=== PATIENT | male | born 1945 | race Caucasian/White ===

== ENCOUNTER 2019-10-26 14:13 | Emergency (ER) | payer OTHER ==
[~2019-10-26] VITALS: Ht 180.3 cm; Wt 63.5 kg
[2019-10-26 14:41] LABS: Basophils # (auto) 0.1 10 ^3/uL (0-0.2); Eosinophils # (auto) 0.1 10 ^3/uL (0-0.8); Hemoglobin 7.8 g/dL (13.5-17.5); Lymphocytes # (auto) 1.2 10 ^3/uL (0.4-5.4); Monocytes # (auto) 0.5 10 ^3/uL (0-1.3); Neutrophils # (auto) 3.8 10 ^3/uL (1.6-8.6); Nucleated Red Blood Cells % 0.1 %; White Blood Cell 5.7 10^3/uL (4.4-10.8)
[2019-10-26 14:43] LABS: Basophils % (auto) 1.9 % (0.0-2.0); Eosinophils % (auto) 1.3 % (0.0-7.0); Hematocrit 22.8 % (41.0-53.0); Lymphocytes % (auto) 20.5 % (10.0-50.0); Mean Corpuscular Hgb Conc. 34.2 g/dL (32.0-36.0); Mean Corpuscular Volume 122.7 fL (80.0-100.0); Neutrophils % (auto) 67.3 % (37.0-80.0); Platelet Count (auto) 216 10^3/uL (140-450); Red Blood Cells 1.86 10^6/uL (4.5-5.90); Red Cell Distribution Width 14.3 % (11.8-14.3)
[2019-10-26 14:59] LABS: Alanine Aminotransferase 17 U/L (16-61); Albumin 3.7 g/dL (3.4-5.0); Anion Gap 4 (5-15); Aspartate Aminotransferase 12 U/L (15-37); BUN/Creatinine Ratio 16.4; Blood Urea Nitrogen 28 mg/dL (7-18); Calcium 8.3 mg/dL (8.5-10.1); Carbon Dioxide 25 mmol/L (21-32); Chloride 109 mmol/L (98-107); GFR African American 51 mL/min; GFR Non-African American 42 mL/min; Glucose 124 mg/dL (74-106); Magnesium 2.3 mg/dL (1.6-2.6); Potassium 4.6 mmol/L (3.5-5.1); Sodium 138 mmol/L (136-145)
[2019-10-26 15:04] LABS: Alkaline Phosphatase 47 U/L (45-117); Bilirubin, Total 0.4 mg/dL (0.2-1.0); Total Protein 7.2 g/dL (6.4-8.2)
[2019-10-26 18:06] VITALS: BP 130/70
[2019-10-26 18:26] VITALS: BP 120/72
[2019-10-26 18:43] LABS: Urine Bacteria NONE SEEN /hpf (None Seen); Urine Blood Negative /uL (Negative); Urine Mucus FEW (None Seen); Urine Specific Gravity 1.007 (1.001-1.035); Urine WBC <1 /hpf (0 - 3)
[2019-10-26 19:29] VITALS: BP 132/91
[2019-10-26 20:12] VITALS: BP 130/80
[2019-12-31] MEDS ORDERED: FERR-7 PO (16:40)
[2020-02-23] MEDS ORDERED: ALBUAER3 IN (03:59)
== END 2019-10-26 20:32 | disposition home or self-care (01) ==
LOC: ER 14:13
DX: D64.9 Anemia, unspecified (principal); C79.82 Secondary malignant neoplasm of genital organs
CPT/HCPCS: 36415; 36430; 71045; 80053; 81001; 83735; 84484; 85025; 86850; 86900; 86901; 86920; 93005; 99285; P9016

== ENCOUNTER 2019-11-29 10:20 | Inpatient (IN) | payer OTHER ==
[~2019-11-29] VITALS: Ht 180.3 cm; Wt 60.8 kg
[2019-11-29 10:53] LABS: Basophils # (auto) 0.1 10 ^3/uL (0-0.2); Eosinophils # (auto) 0.1 10 ^3/uL (0-0.8); Hemoglobin 7.1 g/dL (13.5-17.5); Monocytes # (auto) 0.3 10 ^3/uL (0-1.3); White Blood Cell 3.2 10^3/uL (4.4-10.8)
[2019-11-29 10:54] LABS: Basophils % (auto) 3.6 % (0.0-2.0); Eosinophils % (auto) 3.3 % (0.0-7.0); Hematocrit 21.3 % (41.0-53.0); Lymphocytes # (auto) 1.3 10 ^3/uL (0.4-5.4); Lymphocytes % (auto) 39.5 % (10.0-50.0); Mean Corpuscular Hemoglobin 41.4 pg (28.0-32.0); Mean Corpuscular Hgb Conc. 33.3 g/dL (32.0-36.0); Mean Corpuscular Volume 124.6 fL (80.0-100.0); Monocytes % (auto) 9.5 % (0.0-12.0); Neutrophils # (auto) 1.4 10 ^3/uL (1.6-8.6); Neutrophils % (auto) 44.1 % (37.0-80.0); Nucleated Red Blood Cells % 0.2 %; Platelet Count (auto) 234 10^3/uL (140-450); Red Blood Cells 1.71 10^6/uL (4.5-5.90); Red Cell Distribution Width 15.1 % (11.8-14.3)
[2019-11-29 11:06] LABS: INR 1.03 (0.9-1.15); Partial Thromboplastin Time 27.3 sec (23.64-32.05)
[2019-11-29 11:16] LABS: Albumin 3.7 g/dL (3.4-5.0); Calcium 8.1 mg/dL (8.5-10.1); Potassium 4.1 mmol/L (3.5-5.1)
[2019-11-29 11:19] LABS: Bilirubin, Total 0.3 mg/dL (0.2-1.0); Total Protein 7.2 g/dL (6.4-8.2)
[2019-11-29 13:21] VITALS: BP 115/61
[2019-11-29 13:45] VITALS: BP 112/62
[2019-11-29] MEDS ORDERED: NITROGLYCERIN 0.4 MG SL TAB SL PRN (14:15)
[2019-11-29] MEDS ORDERED: MORPHINE SULF INJ 2 MG/ML SYRINGE 1ML IV PRN (14:15)
[2019-11-29 16:15] VITALS: BP 113/53
[2019-11-29 16:16] VITALS: BP 113/53
[2019-11-29 16:49] LABS: Hemoglobin 7.3 g/dL (13.5-17.5)
[2019-11-29 16:51] LABS: Hematocrit 21.3 % (41.0-53.0)
[2019-11-29] MEDS ORDERED: IPRATROPIUM BROM 0.5 MG/2.5ML INH SOL NEB SCH (18:00)
== END 2019-11-29 18:00 | disposition home health service (06) | DRG 812 ==
LOC: ER 10:20 → TELE 10:21
PROVIDERS: ADMIT Internal Medicine; ATTEND Internal Medicine
PROC: 30233N1 Transfusion of Nonautologous Red Blood Cells into Peripheral Vein, Percutaneous Approach (ICD-10-PCS; principal; 2019-11-29)
DX: D64.9 Anemia, unspecified (principal); I10 Essential (primary) hypertension; J44.9 Chronic obstructive pulmonary disease, unspecified; Z85.46 Personal history of malignant neoplasm of prostate; Z92.3 Personal history of irradiation
CPT/HCPCS: 36415; 71046; 80053; 85014; 85018; 85025; 85610; 85730; 86850; 86900; 86901; 86920; 93005; 99291; G0378

== ENCOUNTER 2019-12-29 15:05 | Inpatient (IN) | payer OTHER ==
[~2019-12-29] VITALS: Ht 180.3 cm; Wt 63.0 kg
[2019-12-29 16:42] LABS: Basophils # (auto) 0.1 10 ^3/uL (0-0.2); Eosinophils # (auto) 0.1 10 ^3/uL (0-0.8); Lymphocytes # (auto) 1.1 10 ^3/uL (0.4-5.4); Monocytes # (auto) 0.4 10 ^3/uL (0-1.3); Nucleated Red Blood Cells % 0.1 %
[2019-12-29 16:51] LABS: Neutrophils % (auto) 56.4 % (37.0-80.0); White Blood Cell 3.9 10^3/uL (4.4-10.8)
[2019-12-29 16:52] LABS: Basophils % (auto) 3.5 % (0.0-2.0); Lymphocytes % (auto) 27.7 % (10.0-50.0); Monocytes % (auto) 9.4 % (0.0-12.0); Neutrophils # (auto) 2.2 10 ^3/uL (1.6-8.6); Red Blood Cells 1.62 10^6/uL (4.5-5.90)
[2019-12-29 16:53] LABS: Hematocrit 20.6 % (41.0-53.0); Mean Corpuscular Hemoglobin 42.5 pg (28.0-32.0); Mean Corpuscular Hgb Conc. 33.5 g/dL (32.0-36.0); Mean Corpuscular Volume 26.8 fL (80.0-100.0); Platelet Count (auto) 206 10^3/uL (140-450); Red Cell Distribution Width 16.3 % (11.8-14.3)
[2019-12-29 16:57] LABS: Hemoglobin 6.9 g/dL (13.5-17.5)
[2019-12-29 16:59] LABS: Albumin 3.7 g/dL (3.4-5.0); Calcium 8.2 mg/dL (8.5-10.1)
[2019-12-29 17:02] LABS: BUN/Creatinine Ratio 20.4; Bilirubin, Total 0.3 mg/dL (0.2-1.0)
[2019-12-29] MEDS ORDERED: ACETAMINOPHEN 325 MG TAB PO PRN (19:45)
[2019-12-29] MEDS ORDERED: MORPHINE SULF INJ 2 MG/ML SYRINGE 1ML IV PRN ×2 (19:45)
[2019-12-29] MEDS ORDERED: HYDROcodone-ACET 5/325MG TAB PO PRN (19:45)
[2019-12-29] MEDS ORDERED: HYDROmorphone HCL 2 MG/ML VL IV PRN (19:45)
[2019-12-29] MEDS ORDERED: NITROGLYCERIN 0.4 MG SL TAB SL PRN (19:45)
[2019-12-29] MEDS ORDERED: TEMAZEPAM 15 MG CAP PO PRN (19:45)
[2019-12-29 20:09] LABS: % Iron Saturation 61.6 % (20-55)
[2019-12-29 20:33] LABS: Ferritin 418.5 ng/mL (10-322); Folate (Folic Acid) 19.93 ng/mL (5.38-24)
[2019-12-29 21:30] VITALS: BP 130/69
[2019-12-29 21:45] VITALS: BP 117/72
[2019-12-29 22:30] VITALS: BP 137/68
[2019-12-29] MEDS: SODIUM CHLOR 0.9% PF (SALINE LOCK) 10ML VIAL/SYR IV SCH (22:30)
[2019-12-29] MEDS: PANTOPRAZOLE 40 MG/10 ML VIAL INJ IV SCH (22:30)
[2019-12-29 22:40] LABS: Urine Bacteria NONE SEEN /hpf (None Seen); Urine Blood Negative /uL (Negative); Urine Mucus FEW (None Seen); Urine WBC <1 /hpf (0 - 3)
[2019-12-29 23:10] VITALS: BP 129/72
[2019-12-30] VITALS (10 sets, daily range): BP systolic 99–152; BP diastolic 39–89
--- NOTE | 2019-12-30 00:05 | NUR ---
MS admit from [facility] admitted to tele/MS after SBAR received. Patient oriented to JAVI guerrero RN, unit, room 217, bed B, and unit policies regarding patient care and visiting hours. Patient weighed by bedscale and encouraged to call if they need something. All questions and concerns addressed, patient verbalized understanding.
--- NOTE | 2019-12-30 01:00 | NUR ---
Patient arrived with a dry cough, no fever, Patient was asked if he has taken the COVID 19 test, patient says I only got to he store! to get food. Will endorse to AM RN to ask for a n order to test for COVID
[2019-12-30] MEDS: SODIUM CHLOR 0.9% PF (SALINE LOCK) 10ML VIAL/SYR IV SCH ×2 (04:30→14:00)
--- NOTE | 2019-12-30 08:00 | NUR ---
Morning note Patient resting in bed with even and unlabored respirations, no distress noted. Instructed patient on POC, fall precautions and to call for assistance as needed. Patient verbalized understanding. Fall precautions in place with call light within reach.
--- NOTE | 2019-12-30 08:15 | NUR ---
Patient's daughter called for an update Password obtained from patient. Keesha, patient's daughter, confirmed password. Update provided.
--- NOTE | 2019-12-30 08:19 | NUR ---
was at bedside - Dr. Acosta - lane for discharge. Patient is okay for discharge once CBC results are resulted.
--- NOTE | 2019-12-30 08:27 | NUR ---
MD at bedside - Dr. Salas - notified MD that patient is refusing EGD MD verbalized understanding. Order received and read back to verify.
--- NOTE | 2019-12-30 08:28 | NUR ---
RE: COVID test - notified MD Notified Dr. Acosta. MD verbalized understanding. Patient not to be tested per MD.
[2019-12-30 08:46] LABS: Basophils # (auto) 0.1 10 ^3/uL (0-0.2); Eosinophils # (auto) 0.1 10 ^3/uL (0-0.8); Hemoglobin 7.2 g/dL (13.5-17.5); Monocytes # (auto) 0.3 10 ^3/uL (0-1.3); Nucleated Red Blood Cells % 0.2 %; White Blood Cell 3.3 10^3/uL (4.4-10.8)
[2019-12-30 08:48] LABS: Basophils % (auto) 2.3 % (0.0-2.0); Eosinophils % (auto) 3.1 % (0.0-7.0); Hematocrit 20.7 % (41.0-53.0); Lymphocytes # (auto) 0.6 10 ^3/uL (0.4-5.4); Lymphocytes % (auto) 19.1 % (10.0-50.0); Mean Corpuscular Hemoglobin 40.9 pg (28.0-32.0); Mean Corpuscular Hgb Conc. 34.9 g/dL (32.0-36.0); Monocytes % (auto) 10.1 % (0.0-12.0); Neutrophils # (auto) 2.1 10 ^3/uL (1.6-8.6); Neutrophils % (auto) 65.4 % (37.0-80.0); Platelet Count (auto) 163 10^3/uL (140-450); Red Blood Cells 1.77 10^6/uL (4.5-5.90)
[2019-12-30 08:56] LABS: Red Cell Distribution Width 23.5 % (11.8-14.3)
[2019-12-30 08:57] LABS: Calcium 8.2 mg/dL (8.5-10.1)
[2019-12-30 09:04] LABS: INR 1.05 (0.9-1.15); Partial Thromboplastin Time 21.4 sec (23.64-32.05)
--- NOTE | 2019-12-30 09:49 | NUR ---
Called Dr. Acosta to notify of CBC results per MD request Results read to Dr. Karla Sepulveda's office staff member.
[2019-12-30] MEDS: PANTOPRAZOLE 40 MG/10 ML VIAL INJ IV SCH (09:53)
--- NOTE | 2019-12-30 09:59 | NUR ---
MRSA swab collected & sent to lab per MD order.
[2019-12-30] MEDS ORDERED: CYANOCOBALAMIN (B-12) 1000 MCG/1 ML VIAL SUBCUT SCH (10:00)
--- NOTE | 2019-12-30 14:58 | NUR ---
MD was at bedside - Dr. Quinones / called patient's daughter POC discussed with the patient and this RN. Called Keesha, patient's daughter, to update on POC. Keesha verbalized understanding and will transport patient home this evening.
--- NOTE | 2019-12-30 15:43 | NUR ---
Blood transfusion started per MD order Order for blood transfusion received. Consent signed in patient's hard chart. Patient verbalized understanding to the order of one unit of PRBCs. Patient educated on s/s of blood transfusion and to notify staff immediately if experiencing any symptoms or any change from baseline. Patient verbalized understanding. Respirations even and unlabored on room air, no distress noted.
--- NOTE | 2019-12-30 15:54 | NUR ---
Consult Est energy needs 9652-2224 kcal (30-35 kcal/kg BW 63kg) Est protein needs 63-76g (1-1.2g/kg BW 63kg) Will reassess prn. Addendum: 12/30/19 at [address] Amended: Links added.
--- NOTE | 2019-12-30 15:58 | NUR ---
Blood transfusion continues Patient tolerating well. Patient denies s/s of blood transfusion reaction or change of status from baseline. VS assessed and documented. Respirations even and unlabored, no distress noted. Call light within reach.
--- NOTE | 2019-12-30 17:51 | NUR ---
Called Dr. Quinones RE: administering dose of Lasix after blood transfusion Voicemail left.
--- NOTE | 2019-12-30 18:05 | NUR ---
Blood transfusion completed per MD order Patient tolerated well. VS assessed and documented. Patient denies s/s of blood transfusion reaction or change in status. Respirations even and unlabored on room air, no distress noted.
[2019-12-30] MEDS ORDERED: FUROSEMIDE 20 MG/2 ML VIAL IV ONE (18:15)
--- NOTE | 2019-12-30 18:15 | NUR ---
One time dose of Lasix to be non-administered per Dr. Quinones Patient's BP of 117/68 mmHg, HR SR 67 bpm. Respirations even and unlabored, no distress noted. Patient denies s/s of blood transfusion reaction or change in status from baseline. MD verbalized understanding. Lasix to be non-administered per .
--- NOTE | 2019-12-30 19:15 | NUR ---
Patient denies s/s of blood transfusion reaction or change of status. VS assessed and documented. Patient to be discharged per MD order. Patient verbalized understanding.
--- NOTE | 2019-12-30 19:30 | NUR ---
Discharge Discharge education and paperwork provided to the patient per MD order. Patient verbalized understanding. (2) IV's removed with aseptic technique, catheter intact. Dressings applied. Patient tolerated well, no trauma to site. MS patient. patient reports having all personal belongings. Respirations even and unlabored, no distress noted. Patient denies s/s of blood transfusion reaction or change of status. Patient refused wheelchair. patient ambulated to hospital lobby with a steady gait accompanied by a staff member. Patient's daughter to transport patient.
[2019-12-31] MEDS ORDERED: FERR-7 PO (16:40)
== END 2019-12-30 19:30 | disposition home or self-care (01) | DRG 812 ==
LOC: ER 15:05 → OVERFLOW 15:06 → CENTRAL 23:50
PROVIDERS: ADMIT Internal Medicine; ATTEND Hospitalist
PROC: 30233N1 Transfusion of Nonautologous Red Blood Cells into Peripheral Vein, Percutaneous Approach (ICD-10-PCS; principal; 2019-12-29)
DX: D64.9 Anemia, unspecified (principal); N18.9 Chronic kidney disease, unspecified; F17.210 Nicotine dependence, cigarettes, uncomplicated; J44.9 Chronic obstructive pulmonary disease, unspecified; I12.9 Hypertensive chronic kidney disease with stage 1 through stage 4 chronic kidney disease, or unspecified chronic kidney disease; Z82.3 Family history of stroke; Z85.46 Personal history of malignant neoplasm of prostate; Z71.6 Tobacco abuse counseling; Z92.3 Personal history of irradiation
CPT/HCPCS: 36415; 80048; 80053; 81001; 82607; 82728; 82746; 83036; 83540; 83550; 83615; 84443; 85025; 85610; 85652; 85730; 86850; 86900; 86901; 86920; 87081; 93005; C9113; G0378

== ENCOUNTER 2020-04-25 17:35 | Emergency (ER) | payer OTHER ==
[~2020-04-25] VITALS: Ht 180.3 cm; Wt 61.7 kg
[~2020-04-25 17:35] MED LIST: ALBUAER3 IN; FERR-7 PO
[2020-04-25 18:42] LABS: Albumin 3.5 g/dL (3.4-5.0); Potassium 4.4 mmol/L (3.5-5.1)
[2020-04-25 18:45] LABS: BUN/Creatinine Ratio 17.4; Bilirubin, Total 0.4 mg/dL (0.2-1.0)
[2020-04-25 19:14] LABS: Basophils # (auto) 0.1 10 ^3/uL (0-0.2); Hematocrit 19.2 % (41.0-53.0); Lymphocytes # (auto) 1.4 10 ^3/uL (0.4-5.4); Monocytes # (auto) 0.5 10 ^3/uL (0-1.3); Red Blood Cells 1.53 10^6/uL (4.5-5.90)
[2020-04-25 19:15] LABS: Basophils % (auto) 2.6 % (0.0-2.0); Eosinophils # (auto) 0.1 10 ^3/uL (0-0.8); Eosinophils % (auto) 2.6 % (0.0-7.0); Lymphocytes % (auto) 24.4 % (10.0-50.0); Mean Corpuscular Hgb Conc. 33.6 g/dL (32.0-36.0); Mean Corpuscular Volume 125.1 fL (80.0-100.0); Monocytes % (auto) 8.5 % (0.0-12.0); Neutrophils # (auto) 3.5 10 ^3/uL (1.6-8.6); Neutrophils % (auto) 61.9 % (37.0-80.0); Nucleated Red Blood Cells % 0.2 %; Platelet Count (auto) 221 10^3/uL (140-450); Red Cell Distribution Width 19.3 % (11.8-14.3); White Blood Cell 5.7 10^3/uL (4.4-10.8)
[2020-04-25 19:24] LABS: Hemoglobin 6.5 g/dL (13.5-17.5)
[2020-04-25 22:58] VITALS: BP 125/68
[2020-04-25 23:28] VITALS: BP 133/42
[2020-04-26 00:28] VITALS: BP 126/75
[2020-04-26 00:48] VITALS: BP 134/74
[2020-04-26 01:27] VITALS: BP 126/69
[2020-04-26 02:29] VITALS: BP 126/70
[2020-04-26 03:19] LABS: Basophils # (auto) 0.1 10 ^3/uL (0-0.2); Eosinophils # (auto) 0.2 10 ^3/uL (0-0.8); Monocytes # (auto) 0.6 10 ^3/uL (0-1.3)
[2020-04-26 03:21] LABS: Basophils % (auto) 1.3 % (0.0-2.0); Eosinophils % (auto) 3.4 % (0.0-7.0); Hemoglobin 8.5 g/dL (13.5-17.5); Lymphocytes # (auto) 1.4 10 ^3/uL (0.4-5.4); Lymphocytes % (auto) 26.6 % (10.0-50.0); Mean Corpuscular Hemoglobin 37.2 pg (28.0-32.0); Mean Corpuscular Hgb Conc. 33.8 g/dL (32.0-36.0); Mean Corpuscular Volume 109.9 fL (80.0-100.0); Monocytes % (auto) 11.7 % (0.0-12.0); Neutrophils # (auto) 2.9 10 ^3/uL (1.6-8.6); Platelet Count (auto) 185 10^3/uL (140-450); Red Blood Cells 2.27 10^6/uL (4.5-5.90); White Blood Cell 5.2 10^3/uL (4.4-10.8)
[2020-04-26 03:24] LABS: Red Cell Distribution Width 27.4 % (11.8-14.3)
== END 2020-04-26 03:46 | disposition home or self-care (01) ==
LOC: ER 17:35
DX: D64.9 Anemia, unspecified (principal); D46.9 Myelodysplastic syndrome, unspecified; J44.9 Chronic obstructive pulmonary disease, unspecified; E78.5 Hyperlipidemia, unspecified; F17.210 Nicotine dependence, cigarettes, uncomplicated; Z79.899 Other long term (current) drug therapy
CPT/HCPCS: 36415; 36430; 80053; 85025; 86850; 86900; 86901; 86920; 99285; J7030; P9016; 93005

== ENCOUNTER 2020-07-31 12:52 | Inpatient (IN) | payer OTHER ==
[~2020-07-31] VITALS: Ht 180.3 cm; Wt 62.0 kg
[2020-07-31 13:57] LABS: Eosinophils # (auto) 0.1 10 ^3/uL (0-0.8); Lymphocytes # (auto) 0.8 10 ^3/uL (0.4-5.4); Nucleated Red Blood Cells % 0.1 %; White Blood Cell 4.5 10^3/uL (4.4-10.8)
[2020-07-31 14:01] LABS: Basophils # (auto) 0.1 10 ^3/uL (0-0.2); Basophils % (auto) 2.8 % (0.0-2.0); Eosinophils % (auto) 2.1 % (0.0-7.0); Hematocrit 18.6 % (41.0-53.0); Lymphocytes % (auto) 17.9 % (10.0-50.0); Mean Corpuscular Hgb Conc. 33.7 g/dL (32.0-36.0); Mean Corpuscular Volume 127.5 fL (80.0-100.0); Monocytes # (auto) 0.5 10 ^3/uL (0-1.3); Monocytes % (auto) 10.4 % (0.0-12.0); Neutrophils % (auto) 66.8 % (37.0-80.0); Platelet Count (auto) 240 10^3/uL (140-450); Red Blood Cells 1.46 10^6/uL (4.5-5.90); Red Cell Distribution Width 17.6 % (11.8-14.3)
[2020-07-31 14:06] LABS: Hemoglobin 6.3 g/dL (13.5-17.5)
[2020-07-31 14:13] LABS: Albumin 3.8 g/dL (3.4-5.0); Calcium 8.7 mg/dL (8.5-10.1)
[2020-07-31 14:16] LABS: Bilirubin, Total 0.3 mg/dL (0.2-1.0); Total Protein 7.2 g/dL (6.4-8.2)
[2020-07-31 14:19] LABS: INR 1.04 (0.9-1.15); Partial Thromboplastin Time 24.8 sec (23.0-31.2)
[2020-07-31 14:54] LABS: Potassium 5.7 mmol/L (3.5-5.1)
[2020-07-31] MEDS ORDERED: CALCIUM GLUC 4.65meq/50ml D5AE 50 ML IV ONE (16:30)
[2020-07-31] MEDS ORDERED: SODIUM BICARBONATE 8.4 % INJ 50ML VIAL IV ONE (16:30)
[2020-07-31] MEDS ORDERED: MORPHINE SULFATE 4 MG/ML SYR/VIAL IV PRN (17:15)
[2020-07-31] MEDS ORDERED: MORPHINE SULF INJ 2 MG/ML SYRINGE 1ML IV PRN (17:15)
[2020-07-31] MEDS ORDERED: HYDROcodone-ACET 5/325MG TAB PO PRN (17:15)
[2020-07-31] MEDS ORDERED: NITROGLYCERIN 0.4 MG SL TAB SL PRN (17:15)
[2020-07-31] MEDS ORDERED: ACETAMINOPHEN 325 MG TAB PO PRN (17:15)
[2020-07-31] MEDS ORDERED: ONDANSETRON HCL 4 MG/2 ML VIAL IV ONE (17:15)
[2020-07-31] MEDS ORDERED: SODIUM CHLORIDE 0.9% 1,000 ML IV ONE (17:15)
[2020-07-31] MEDS ORDERED: InsuLIN REG 1unit/0.01ml Soln (100units/ml) IV ONE (17:30)
[2020-07-31] MEDS ORDERED: DEXTROSE (50%) 50ML SYRG IV ONE (17:30)
[2020-07-31] MEDS ORDERED: ONDANSETRON HCL 4 MG/2 ML VIAL IV PRN (18:15)
[2020-07-31 20:08] LABS: Basophils # (auto) 0.2 10 ^3/uL (0-0.2); Eosinophils # (auto) 0.2 10 ^3/uL (0-0.8); Monocytes # (auto) 0.7 10 ^3/uL (0-1.3); White Blood Cell 5.7 10^3/uL (4.4-10.8)
[2020-07-31 20:10] LABS: Basophils % (auto) 2.6 % (0.0-2.0); Hematocrit 19.4 % (41.0-53.0); Lymphocytes # (auto) 2.5 10 ^3/uL (0.4-5.4); Lymphocytes % (auto) 44.3 % (10.0-50.0); Mean Corpuscular Hemoglobin 41.5 pg (28.0-32.0); Mean Corpuscular Hgb Conc. 34.7 g/dL (32.0-36.0); Mean Corpuscular Volume 119.7 fL (80.0-100.0); Monocytes % (auto) 12.1 % (0.0-12.0); Neutrophils # (auto) 2.2 10 ^3/uL (1.6-8.6); Nucleated Red Blood Cells % 0.2 %; Platelet Count (auto) 257 10^3/uL (140-450); Red Blood Cells 1.62 10^6/uL (4.5-5.90)
[2020-07-31 20:19] LABS: Red Cell Distribution Width 25.3 % (11.8-14.3)
[2020-07-31 20:22] LABS: Hemoglobin 6.7 g/dL (13.5-17.5)
[2020-07-31 20:33] LABS: BUN/Creatinine Ratio 22.8; Calcium 8.3 mg/dL (8.5-10.1); Magnesium 2.4 mg/dL (1.6-2.6); Potassium 3.3 mmol/L (3.5-5.1)
[2020-07-31 23:30] VITALS: BP 149/60
[2020-07-31 23:39] VITALS: BP 149/60
[2020-08-01] VITALS (13 sets, daily range): BP systolic 115–141; BP diastolic 67–87
[2020-08-01 09:35] LABS: Basophils # (auto) 0.1 10 ^3/uL (0-0.2); Eosinophils # (auto) 0.1 10 ^3/uL (0-0.8); Lymphocytes # (auto) 1.1 10 ^3/uL (0.4-5.4); Neutrophils # (auto) 2.4 10 ^3/uL (1.6-8.6); Nucleated Red Blood Cells % 0.1 %; White Blood Cell 4.2 10^3/uL (4.4-10.8)
[2020-08-01 09:37] LABS: Basophils % (auto) 2.5 % (0.0-2.0); Eosinophils % (auto) 3.1 % (0.0-7.0); Hematocrit 25.1 % (41.0-53.0); Lymphocytes % (auto) 27.4 % (10.0-50.0); Mean Corpuscular Hemoglobin 37.9 pg (28.0-32.0); Mean Corpuscular Hgb Conc. 35.9 g/dL (32.0-36.0); Mean Corpuscular Volume 105.6 fL (80.0-100.0); Monocytes # (auto) 0.4 10 ^3/uL (0-1.3); Monocytes % (auto) 9.5 % (0.0-12.0); Neutrophils % (auto) 57.5 % (37.0-80.0); Platelet Count (auto) 184 10^3/uL (140-450); Red Blood Cells 2.38 10^6/uL (4.5-5.90); Red Cell Distribution Width 27.7 % (11.8-14.3)
[2020-08-01 09:57] LABS: BUN/Creatinine Ratio 19.5; Potassium 4.3 mmol/L (3.5-5.1)
[2020-08-01] MEDS ORDERED: PANTOPRAZOLE 40 MG TAB PO SCH (10:00)
[2020-08-01 13:48] LABS: Creatinine, Urine 36 mg/dL (30.0-125.0); Sodium Urine 92 mmol/L (40-220)
[2020-08-01] MEDS ORDERED: NITROGLYCERIN 0.4 MG SL TAB SL PRN (14:30)
== END 2020-08-01 18:00 | disposition home or self-care (01) | DRG 811 ==
LOC: ER 12:52 → TELE 12:53 → TELE-EAST 23:20
PROVIDERS: ADMIT Internal Medicine; ATTEND Internal Medicine
PROC: 30233N1 Transfusion of Nonautologous Red Blood Cells into Peripheral Vein, Percutaneous Approach (ICD-10-PCS; principal; 2020-07-31)
DX: D53.9 Nutritional anemia, unspecified (principal); N17.0 Acute kidney failure with tubular necrosis; D46.9 Myelodysplastic syndrome, unspecified; D51.0 Vitamin B12 deficiency anemia due to intrinsic factor deficiency; E87.5 Hyperkalemia; E78.5 Hyperlipidemia, unspecified; F17.210 Nicotine dependence, cigarettes, uncomplicated; J44.9 Chronic obstructive pulmonary disease, unspecified; Z82.3 Family history of stroke; Z20.822 Contact with and (suspected) exposure to COVID-19
CPT/HCPCS: 36415; 76775; 80048; 80053; 82570; 82962; 83036; 83735; 83880; 84300; 85025; 85610; 85730; 86850; 86900; 86901; 86920; 87426; 96361; 96365; 96375; 99291; G0378; J0610; J1815

== ENCOUNTER 2020-10-19 11:57 | Inpatient (IN) | payer OTHER ==
[~2020-10-19] VITALS: Ht 180.3 cm; Wt 60.6 kg
[2020-10-19] VITALS (8 sets, daily range): BP systolic 119–141; BP diastolic 52–79
[2020-10-19 12:54] LABS: Eosinophils # (auto) 0.1 10 ^3/uL (0-0.8); Monocytes # (auto) 0.4 10 ^3/uL (0-1.3); Neutrophils # (auto) 1.9 10 ^3/uL (1.6-8.6); White Blood Cell 3.8 10^3/uL (4.4-10.8)
[2020-10-19 12:55] LABS: Basophils # (auto) 0.1 10 ^3/uL (0-0.2); Basophils % (auto) 3.6 % (0.0-2.0); Eosinophils % (auto) 3.8 % (0.0-7.0); Hematocrit 18.2 % (41.0-53.0); Lymphocytes # (auto) 1.1 10 ^3/uL (0.4-5.4); Lymphocytes % (auto) 30.2 % (10.0-50.0); Mean Corpuscular Hemoglobin 41.2 pg (28.0-32.0); Mean Corpuscular Hgb Conc. 33.9 g/dL (32.0-36.0); Mean Corpuscular Volume 121.7 fL (80.0-100.0); Monocytes % (auto) 10.6 % (0.0-12.0); Neutrophils % (auto) 51.8 % (37.0-80.0); Nucleated Red Blood Cells % 0.4 %
[2020-10-19 13:06] LABS: Hemoglobin 6.2 g/dL (13.5-17.5); Red Cell Distribution Width 24.2 % (11.8-14.3)
[2020-10-19 13:07] LABS: Albumin 3.5 g/dL (3.4-5.0); Calcium 8.1 mg/dL (8.5-10.1); Potassium 4.7 mmol/L (3.5-5.1)
[2020-10-19 13:12] LABS: BUN/Creatinine Ratio 22.7; Bilirubin, Total 0.5 mg/dL (0.2-1.0); Total Protein 6.9 g/dL (6.4-8.2)
[2020-10-19] MEDS ORDERED: IPRATROPIUM BROM 0.5 MG/2.5ML INH SOL NEB ONE (14:45)
[2020-10-19] MEDS ORDERED: ALBUTEROL SULF 2.5 MG/0.5ML(0.5%) NEB SOLN NEB ONE (14:45)
[2020-10-19] MEDS ORDERED: methylPREDNISolone SOD SUCC 125 MG/2 ML VL IV ONE (15:30)
[2020-10-19] MEDS ORDERED: ACETAMINOPHEN 500 MG TAB PO PRN ×2 (16:00→23:00)
[2020-10-19] MEDS ORDERED: METOCLOPRAMIDE HCL 5MG/ml INJ 2ml VIAL IV PRN ×2 (16:00→23:00)
[2020-10-19] MEDS ORDERED: NITROGLYCERIN 0.4 MG SL TAB SL PRN ×2 (16:00→23:00)
[2020-10-19] MEDS ORDERED: MORPHINE SULFATE INJECTION 2 MG/ML SYRG IV PRN ×2 (16:00→23:00)
[2020-10-19] MEDS ORDERED: IPRATROPIUM BROM 0.5 MG/2.5ML INH SOL NEB SCH (18:00)
[2020-10-19] MEDS ORDERED: ALBUTEROL SULF 2.5 MG/0.5ML(0.5%) NEB SOLN NEB SCH ×2 (18:00→22:00)
[2020-10-19] MEDS ORDERED: methylPREDNISolone SOD SUCC 40 MG/ML VL IV SCH (18:00)
[2020-10-19] MEDS ORDERED: FUROSEMIDE 40 MG/4 ML VIAL IV SCH (18:00)
[2020-10-19 18:17] LABS: Urine WBC None Seen /hpf (0 - 3)
[2020-10-19 18:32] LABS: Urine Bacteria NONE SEEN /hpf (None Seen); Urine Blood Negative /uL (Negative); Urine Specific Gravity 1.009 (1.001-1.035)
[2020-10-19] MEDS ORDERED: POTASSIUM CHL 10 Meq TABLET PO SCH (22:00)
[2020-10-19] MEDS ORDERED: UMEC1AER IN (22:02)
[2020-10-19] MEDS: ALBUTEROL SULF 2.5 MG/0.5ML(0.5%) NEB SOLN NEB SCH (23:00)
[2020-10-19] MEDS: IPRATROPIUM BROM 0.5 MG/2.5ML INH SOL NEB SCH (23:00)
[2020-10-19] MEDS: methylPREDNISolone SOD SUCC 40 MG/ML VL IV SCH (23:09)
[2020-10-19] MEDS: POTASSIUM CHL 10 Meq TABLET PO SCH (23:09)
[2020-10-20 05:15] VITALS: BP 121/74
[2020-10-20] MEDS ORDERED: FUROSEMIDE 40 MG/4 ML VIAL IV SCH (06:00)
[2020-10-20] MEDS: methylPREDNISolone SOD SUCC 40 MG/ML VL IV SCH ×2 (06:16→11:56)
[2020-10-20 09:00] VITALS: BP 122/67
[2020-10-20] MEDS: IPRATROPIUM BROM 0.5 MG/2.5ML INH SOL NEB SCH ×2 (09:50→14:03)
[2020-10-20] MEDS: ALBUTEROL SULF 2.5 MG/0.5ML(0.5%) NEB SOLN NEB SCH ×2 (09:50→14:03)
[2020-10-20] MEDS: POTASSIUM CHL 10 Meq TABLET PO SCH (10:00)
[2020-10-20 10:42] LABS: Basophils # (auto) 0.1 10 ^3/uL (0-0.2); Eosinophils # (auto) 0 10 ^3/uL (0-0.8); Neutrophils # (auto) 8.6 10 ^3/uL (1.6-8.6); Red Blood Cells 2.44 10^6/uL (4.5-5.90)
[2020-10-20 10:45] LABS: Basophils % (auto) 0.8 % (0.0-2.0); Eosinophils % (auto) 0.2 % (0.0-7.0); Hematocrit 25.9 % (41.0-53.0); Hemoglobin 9.3 g/dL (13.5-17.5); Lymphocytes # (auto) 0.4 10 ^3/uL (0.4-5.4); Lymphocytes % (auto) 3.7 % (10.0-50.0); Mean Corpuscular Hgb Conc. 35.8 g/dL (32.0-36.0); Monocytes # (auto) 0.4 10 ^3/uL (0-1.3); Monocytes % (auto) 4.3 % (0.0-12.0); White Blood Cell 9.5 10^3/uL (4.4-10.8)
[2020-10-20 13:00] VITALS: BP 105/69
[2021-01-24] MEDS ORDERED: FLUT250INH PO (10:02)
[2021-01-24] MEDS ORDERED: UMEC1AER (10:02)
== END 2020-10-20 14:30 | disposition home or self-care (01) | DRG 812 ==
LOC: ER 11:57 → TELE-EAST 16:52 → OBSVTOIN 16:52 → INTOOBSV 16:52 → ER 19:29 → EAST 21:08 → TELE-EAST 22:38
PROVIDERS: ADMIT Hospitalist; ATTEND Hospitalist
DX: D46.9 Myelodysplastic syndrome, unspecified (principal); J44.1 Chronic obstructive pulmonary disease with (acute) exacerbation; Z20.822 Contact with and (suspected) exposure to COVID-19; N18.9 Chronic kidney disease, unspecified; E78.5 Hyperlipidemia, unspecified; F17.210 Nicotine dependence, cigarettes, uncomplicated; Z85.46 Personal history of malignant neoplasm of prostate; Z79.899 Other long term (current) drug therapy; D63.8 Anemia in other chronic diseases classified elsewhere
CPT/HCPCS: 36415; 36430; 80053; 81001; 85025; 86850; 86900; 86901; 86920; 87426; 93005; 94640; 96374; 96375; 96376; G0378

== ENCOUNTER 2021-03-07 14:53 | Inpatient (IN) | payer OTHER ==
[2021-03-07] VITALS (12 sets, daily range): BP systolic 123–145; BP diastolic 62–93
[~2021-03-07] VITALS: Ht 180.3 cm; Wt 62.3 kg
[~2021-03-07 14:53] MED LIST changes: +FLUT250INH PO; +UMEC1AER IN
[2021-03-07 15:26] LABS: Basophils # (auto) 0.1 10 ^3/uL (0-0.2); Eosinophils # (auto) 0.1 10 ^3/uL (0-0.8); Lymphocytes # (auto) 1.2 10 ^3/uL (0.4-5.4); Lymphocytes % (auto) 33.5 % (10.0-50.0); White Blood Cell 3.6 10^3/uL (4.4-10.8)
[2021-03-07 15:28] LABS: Basophils % (auto) 3.3 % (0.0-2.0); Eosinophils % (auto) 4.1 % (0.0-7.0); Hematocrit 17.6 % (41.0-53.0); Mean Corpuscular Hemoglobin 35.6 pg (28.0-32.0); Mean Corpuscular Hgb Conc. 33.2 g/dL (32.0-36.0); Mean Corpuscular Volume 107.2 fL (80.0-100.0); Monocytes # (auto) 0.3 10 ^3/uL (0-1.3); Monocytes % (auto) 8.1 % (0.0-12.0); Neutrophils # (auto) 1.8 10 ^3/uL (1.6-8.6); Nucleated Red Blood Cells % 0.3 %; Red Blood Cells 1.64 10^6/uL (4.5-5.90)
[2021-03-07 15:34] LABS: Red Cell Distribution Width 30.3 % (11.8-14.3)
[2021-03-07 15:35] LABS: Hemoglobin 5.8 g/dL (13.5-17.5)
[2021-03-07 15:46] LABS: Albumin 3.3 g/dL (3.4-5.0); Anion Gap 7 (5-15); Blood Urea Nitrogen 35 mg/dL (7-18); Carbon Dioxide 23 mmol/L (21-32); Chloride 111 mmol/L (98-107); Glucose 177 mg/dL (74-106); Sodium 141 mmol/L (136-145)
[2021-03-07 15:52] LABS: Alanine Aminotransferase 23 U/L (16-61); Alkaline Phosphatase 61 U/L (45-117); Aspartate Aminotransferase 10 U/L (15-37); BUN/Creatinine Ratio 21.9; Bilirubin, Total 0.3 mg/dL (0.2-1.0); GFR African American 55 mL/min; GFR Non-African American 45 mL/min; Total Protein 6.6 g/dL (6.4-8.2)
[2021-03-07] MEDS ORDERED: ONDANSETRON HCL 4 MG/2 ML VIAL IV PRN (16:45)
[2021-03-07] MEDS ORDERED: NITROGLYCERIN 0.4 MG SL TAB SL PRN (16:45)
[2021-03-07] MEDS ORDERED: MORPHINE SULFATE INJECTION 2 MG/ML SYRG IV PRN ×2 (16:45)
[2021-03-07] MEDS ORDERED: LORATADINE 10 MG TAB PO ONE (16:45)
[2021-03-07] MEDS ORDERED: IPRATROPIUM BROM 0.5 MG/2.5ML INH SOL NEB PRN (17:00)
[2021-03-07] MEDS ORDERED: ALBUTEROL SULF 2.5 MG/0.5ML(0.5%) NEB SOLN NEB PRN (17:00)
[2021-03-07] MEDS ORDERED: ACETAMINOPHEN 325 MG TAB PO ONE (17:00)
[2021-03-07 17:16] LABS: Ferritin 809.8 ng/mL (10-322)
[2021-03-07 17:17] LABS: Folate (Folic Acid) 16.68 ng/mL (5.38-24)
[2021-03-07 17:36] LABS: % Iron Saturation 91.9 % (20-55)
[2021-03-07] MEDS ORDERED: ALBUTEROL SULF HFA 90MCG INH 200DOSE IN SCH (18:00)
[2021-03-07] MEDS ORDERED: FUROSEMIDE 20 MG/2 ML VIAL IV ONE (20:30)
[2021-03-07] MEDS: FAMOTIDINE 20 MG TAB PO SCH (22:27)
[2021-03-08] VITALS (7 sets, daily range): BP systolic 116–134; BP diastolic 60–77
[2021-03-08] MEDS ORDERED: FOLI1TAB6 PO (06:22)
[2021-03-08 07:00] LABS: Basophils # (auto) 0.1 10 ^3/uL (0-0.2); Eosinophils # (auto) 0.2 10 ^3/uL (0-0.8); Hematocrit 26.9 % (41.0-53.0); Hemoglobin 9.2 g/dL (13.5-17.5); Lymphocytes # (auto) 1.1 10 ^3/uL (0.4-5.4); Lymphocytes % (auto) 32.2 % (10.0-50.0); Mean Corpuscular Hemoglobin 32.5 pg (28.0-32.0); Mean Corpuscular Hgb Conc. 34.2 g/dL (32.0-36.0); Mean Corpuscular Volume 95.2 fL (80.0-100.0); Monocytes # (auto) 0.3 10 ^3/uL (0-1.3); Monocytes % (auto) 9.5 % (0.0-12.0); Neutrophils # (auto) 1.8 10 ^3/uL (1.6-8.6); Neutrophils % (auto) 51.3 % (37.0-80.0); Red Blood Cells 2.82 10^6/uL (4.5-5.90); White Blood Cell 3.5 10^3/uL (4.4-10.8)
[2021-03-08 07:17] LABS: Red Cell Distribution Width 24.5 % (11.8-14.3)
[2021-03-08 07:32] LABS: Potassium 4.3 mmol/L (3.5-5.1)
[2021-03-08 07:41] LABS: Calcium 7.9 mg/dL (8.5-10.1)
[2021-03-08 08:17] LABS: BUN/Creatinine Ratio 20.3
[2021-03-08] MEDS: FAMOTIDINE 20 MG TAB PO SCH (10:59)
== END 2021-03-08 17:30 | disposition home or self-care (01) | DRG 812 ==
LOC: ER 14:53 → TELE 16:45 → TELE-CENTR 20:26
PROVIDERS: ADMIT Hospitalist; ATTEND Hospitalist
PROC: 30233N1 Transfusion of Nonautologous Red Blood Cells into Peripheral Vein, Percutaneous Approach (ICD-10-PCS; principal; 2021-03-07)
DX: D46.9 Myelodysplastic syndrome, unspecified (principal); J44.1 Chronic obstructive pulmonary disease with (acute) exacerbation; Z20.822 Contact with and (suspected) exposure to COVID-19; F17.210 Nicotine dependence, cigarettes, uncomplicated; Z82.3 Family history of stroke; Z82.49 Family history of ischemic heart disease and other diseases of the circulatory system
CPT/HCPCS: 36415; 71045; 80048; 80053; 82607; 82728; 82746; 83540; 83550; 83615; 84484; 85025; 85045; 86850; 86900; 86901; 86920; 87426; 93005; 94640; 96374; 99291; G0378

== ENCOUNTER 2021-05-01 09:33 | Emergency (ER) | payer OTHER ==
[2021-05-01] VITALS (8 sets, daily range): BP systolic 112–133; BP diastolic 65–74
[~2021-05-01] VITALS: Ht 180.3 cm; Wt 59.0 kg
[~2021-05-01 09:33] MED LIST changes: +FOLI1TAB6 PO
[2021-05-01 10:10] LABS: Basophils # (auto) 0.1 10 ^3/uL (0-0.2); Monocytes # (auto) 0.4 10 ^3/uL (0-1.3); Neutrophils # (auto) 3.2 10 ^3/uL (1.6-8.6); Nucleated Red Blood Cells % 0.1 %
[2021-05-01 10:12] LABS: Basophils % (auto) 2.4 % (0.0-2.0); Eosinophils # (auto) 0.3 10 ^3/uL (0-0.8); Eosinophils % (auto) 4.6 % (0.0-7.0); Hematocrit 19.2 % (41.0-53.0); Lymphocytes # (auto) 1.7 10 ^3/uL (0.4-5.4); Lymphocytes % (auto) 29.5 % (10.0-50.0); Mean Corpuscular Hemoglobin 34.9 pg (28.0-32.0); Mean Corpuscular Hgb Conc. 32.9 g/dL (32.0-36.0); Mean Corpuscular Volume 106.1 fL (80.0-100.0); Monocytes % (auto) 7.8 % (0.0-12.0); Neutrophils % (auto) 55.7 % (37.0-80.0); Red Blood Cells 1.81 10^6/uL (4.5-5.90); White Blood Cell 5.7 10^3/uL (4.4-10.8)
[2021-05-01 10:18] LABS: Red Cell Distribution Width 31.3 % (11.8-14.3)
[2021-05-01 10:20] LABS: Hemoglobin 6.3 g/dL (13.5-17.5)
[2021-05-01 10:28] LABS: Albumin 3.1 g/dL (3.4-5.0); Potassium 4.4 mmol/L (3.5-5.1)
[2021-05-01 10:33] LABS: BUN/Creatinine Ratio 18.5; Bilirubin, Total 0.4 mg/dL (0.2-1.0); Total Protein 6.8 g/dL (6.4-8.2)
[2021-05-01] MEDS ORDERED: HYDROmorphone HCL 2 MG/ML VL IV ONE (18:15)
[2021-05-01 18:19] LABS: Basophils # (auto) 0.1 10 ^3/uL (0-0.2); Lymphocytes # (auto) 1.2 10 ^3/uL (0.4-5.4); Mean Corpuscular Hemoglobin 33.5 pg (28.0-32.0); Monocytes # (auto) 0.4 10 ^3/uL (0-1.3); Neutrophils # (auto) 1.7 10 ^3/uL (1.6-8.6); Red Blood Cells 2.39 10^6/uL (4.5-5.90)
[2021-05-01 18:22] LABS: Basophils % (auto) 2.6 % (0.0-2.0); Eosinophils # (auto) 0.1 10 ^3/uL (0-0.8); Eosinophils % (auto) 4.2 % (0.0-7.0); Hematocrit 23.9 % (41.0-53.0); Lymphocytes % (auto) 33.4 % (10.0-50.0); Mean Corpuscular Hgb Conc. 33.5 g/dL (32.0-36.0); Mean Corpuscular Volume 99.9 fL (80.0-100.0); Monocytes % (auto) 10.9 % (0.0-12.0); Neutrophils % (auto) 48.9 % (37.0-80.0); Nucleated Red Blood Cells % 0.2 %; White Blood Cell 3.6 10^3/uL (4.4-10.8)
[2021-05-01 18:25] LABS: Red Cell Distribution Width 26.1 % (11.8-14.3)
== END 2021-05-01 18:50 | disposition short-term general hospital (02) ==
LOC: ER 09:33
DX: R53.1 Weakness (principal); D50.9 Iron deficiency anemia, unspecified; R06.02 Shortness of breath; D46.9 Myelodysplastic syndrome, unspecified; J44.9 Chronic obstructive pulmonary disease, unspecified; F17.210 Nicotine dependence, cigarettes, uncomplicated; E78.5 Hyperlipidemia, unspecified; Z79.899 Other long term (current) drug therapy; Z88.1 Allergy status to other antibiotic agents
CPT/HCPCS: 36415; 36430; 71045; 80053; 84484; 85025; 86850; 86900; 86901; 86920; 93005; 99285; P9016

== ENCOUNTER 2021-06-14 13:04 | Inpatient (IN) | payer OTHER ==
[~2021-06-14] VITALS: Ht 180.3 cm; Wt 59.0 kg
[2021-06-14 14:40] LABS: Basophils # (auto) 0.1 10 ^3/uL (0-0.2); Lymphocytes # (auto) 0.7 10 ^3/uL (0.4-5.4); Monocytes # (auto) 0.3 10 ^3/uL (0-1.3); Monocytes % (auto) 8.6 % (0.0-12.0); Red Blood Cells 1.67 10^6/uL (4.5-5.90)
[2021-06-14 14:41] LABS: Basophils % (auto) 3.5 % (0.0-2.0); Eosinophils # (auto) 0.1 10 ^3/uL (0-0.8); Eosinophils % (auto) 3.6 % (0.0-7.0); Hematocrit 18.4 % (41.0-53.0); Lymphocytes % (auto) 18.1 % (10.0-50.0); Mean Corpuscular Hemoglobin 37.4 pg (28.0-32.0); Mean Corpuscular Hgb Conc. 33.9 g/dL (32.0-36.0); Mean Corpuscular Volume 110.3 fL (80.0-100.0); Neutrophils # (auto) 2.6 10 ^3/uL (1.6-8.6); Neutrophils % (auto) 66.2 % (37.0-80.0); Nucleated Red Blood Cells % 0.2 %
[2021-06-14 14:45] LABS: INR 1.02 (0.9-1.15); Partial Thromboplastin Time 26.4 sec (23.6-33.0)
[2021-06-14 14:56] LABS: Albumin 3.5 g/dL (3.4-5.0); Calcium 7.8 mg/dL (8.5-10.1); Potassium 4.4 mmol/L (3.5-5.1)
[2021-06-14 15:06] LABS: Bilirubin, Total 0.3 mg/dL (0.2-1.0); Total Protein 6.5 g/dL (6.4-8.2)
[2021-06-14 15:08] LABS: Red Cell Distribution Width 28.5 % (11.8-14.3)
[2021-06-14 15:12] LABS: Hemoglobin 6.2 g/dL (13.5-17.5)
[2021-06-14] MEDS ORDERED: ONDANSETRON HCL 4 MG/2 ML VIAL IV PRN (22:00)
[2021-06-14] MEDS ORDERED: ACETAMINOPHEN 325 MG TAB PO PRN (22:00)
[2021-06-14] MEDS ORDERED: DOCUSATE SOD 100 MG CAP PO PRN (22:00)
[2021-06-14] MEDS: ACCU-CHEK COMFORT CURVE STRIP VI SCH (22:00)
[2021-06-14] MEDS ORDERED: HYDROcodone-ACET 5/325MG TAB PO PRN (22:00)
[2021-06-14] MEDS ORDERED: DEXTROSE (50%) 50ML SYRG IV PRN (22:00)
[2021-06-14] MEDS: InsuLIN REG 1unit/0.01ml Soln (100units/ml) SC SCH (22:00)
[2021-06-14] MEDS ORDERED: MORPHINE SULFATE INJECTION 2 MG/ML SYRG IV PRN (23:00)
[2021-06-14] MEDS ORDERED: NITROGLYCERIN 0.4 MG SL TAB SL PRN (23:00)
[2021-06-14] MEDS: SODIUM CHLOR 0.9% PF (SALINE LOCK) 10ML VIAL/SYR IV SCH (23:36)
[2021-06-15 00:45] VITALS: BP 116/59
[2021-06-15 01:00] VITALS: BP 117/45
[2021-06-15 02:20] VITALS: BP 148/69
[2021-06-15 04:18] LABS: Basophils # (auto) 0.1 10 ^3/uL (0-0.2); Eosinophils # (auto) 0.1 10 ^3/uL (0-0.8); Mean Corpuscular Hgb Conc. 35.4 g/dL (32.0-36.0); Monocytes # (auto) 0.4 10 ^3/uL (0-1.3); Neutrophils # (auto) 1.9 10 ^3/uL (1.6-8.6); White Blood Cell 3.7 10^3/uL (4.4-10.8)
[2021-06-15 04:21] LABS: Basophils % (auto) 2.8 % (0.0-2.0); Eosinophils % (auto) 3.6 % (0.0-7.0); Hematocrit 19.3 % (41.0-53.0); Lymphocytes # (auto) 1.1 10 ^3/uL (0.4-5.4); Lymphocytes % (auto) 30.9 % (10.0-50.0); Mean Corpuscular Hemoglobin 36.6 pg (28.0-32.0); Mean Corpuscular Volume 103.4 fL (80.0-100.0); Neutrophils % (auto) 51.7 % (37.0-80.0); Nucleated Red Blood Cells % 0.1 %; Red Blood Cells 1.86 10^6/uL (4.5-5.90)
[2021-06-15 04:23] LABS: Albumin 3.2 g/dL (3.4-5.0); Calcium 7.8 mg/dL (8.5-10.1); Potassium 4.3 mmol/L (3.5-5.1)
[2021-06-15 04:26] LABS: BUN/Creatinine Ratio 22.2; Bilirubin, Total 0.8 mg/dL (0.2-1.0); Total Protein 5.9 g/dL (6.4-8.2)
[2021-06-15 05:29] LABS: Hemoglobin 6.8 g/dL (13.5-17.5); Red Cell Distribution Width 27.5 % (11.8-14.3)
[2021-06-15] MEDS: SODIUM CHLOR 0.9% PF (SALINE LOCK) 10ML VIAL/SYR IV SCH ×2 (06:00→10:47)
[2021-06-15] MEDS: InsuLIN REG 1unit/0.01ml Soln (100units/ml) SC SCH ×3 (06:53→17:00)
[2021-06-15] MEDS: ACCU-CHEK COMFORT CURVE STRIP VI SCH ×3 (07:00→17:00)
[2021-06-15 08:29] VITALS: BP 138/69
[2021-06-15 09:59] VITALS: BP 141/70
[2021-06-15] MEDS ORDERED: FAMOTIDINE (10MG/ML) 2ML VL IV SCH (10:00)
[2021-06-15 12:04] LABS: Basophils # (auto) 0.1 10 ^3/uL (0-0.2); Eosinophils # (auto) 0.1 10 ^3/uL (0-0.8); Lymphocytes # (auto) 0.8 10 ^3/uL (0.4-5.4); Monocytes # (auto) 0.3 10 ^3/uL (0-1.3); Neutrophils # (auto) 2.1 10 ^3/uL (1.6-8.6); White Blood Cell 3.5 10^3/uL (4.4-10.8)
[2021-06-15 12:07] LABS: Eosinophils % (auto) 3.1 % (0.0-7.0); Hematocrit 23.6 % (41.0-53.0); Hemoglobin 8.2 g/dL (13.5-17.5); Lymphocytes % (auto) 24.2 % (10.0-50.0); Mean Corpuscular Hemoglobin 35.4 pg (28.0-32.0); Mean Corpuscular Hgb Conc. 34.9 g/dL (32.0-36.0); Mean Corpuscular Volume 101.7 fL (80.0-100.0); Monocytes % (auto) 8.7 % (0.0-12.0); Red Blood Cells 2.32 10^6/uL (4.5-5.90)
[2021-06-15 12:14] LABS: Red Cell Distribution Width 26.4 % (11.8-14.3)
[2021-06-15 16:00] VITALS: BP 136/85
== END 2021-06-15 17:40 | disposition home or self-care (01) | DRG 812 ==
LOC: ER 13:04 → OVERFLOW 22:53
PROVIDERS: ADMIT Nurse Practitioner Family; ATTEND Nurse Practitioner Family
PROC: 30233N1 Transfusion of Nonautologous Red Blood Cells into Peripheral Vein, Percutaneous Approach (ICD-10-PCS; principal; 2021-06-15)
DX: D46.9 Myelodysplastic syndrome, unspecified (principal); N17.9 Acute kidney failure, unspecified; Z20.822 Contact with and (suspected) exposure to COVID-19; D53.9 Nutritional anemia, unspecified; D63.8 Anemia in other chronic diseases classified elsewhere; E78.5 Hyperlipidemia, unspecified; F17.210 Nicotine dependence, cigarettes, uncomplicated; J44.9 Chronic obstructive pulmonary disease, unspecified; R73.9 Hyperglycemia, unspecified; Z88.8 Allergy status to other drugs, medicaments and biological substances; Z82.3 Family history of stroke; Z79.51 Long term (current) use of inhaled steroids; Z82.49 Family history of ischemic heart disease and other diseases of the circulatory system
CPT/HCPCS: 36415; 71046; 80053; 82962; 83036; 84484; 85025; 85610; 85730; 86850; 86900; 86901; 86920; 87426; 96374; G0378; J1815; J3490

== ENCOUNTER 2021-07-26 14:53 | Emergency (ER) | payer OTHER ==
[~2021-07-26] VITALS: Ht 180.3 cm; Wt 59.0 kg
[2021-07-26 15:28] LABS: Basophils # (auto) 0.1 10 ^3/uL (0-0.2); Eosinophils # (auto) 0.2 10 ^3/uL (0-0.8); Nucleated Red Blood Cells % 0.3 %; Red Blood Cells 1.72 10^6/uL (4.5-5.90)
[2021-07-26 15:30] LABS: Eosinophils % (auto) 6.7 % (0.0-7.0); Hematocrit 19.1 % (41.0-53.0); Lymphocytes # (auto) 0.9 10 ^3/uL (0.4-5.4); Lymphocytes % (auto) 26.3 % (10.0-50.0); Mean Corpuscular Hemoglobin 38.3 pg (28.0-32.0); Mean Corpuscular Hgb Conc. 34.4 g/dL (32.0-36.0); Mean Corpuscular Volume 111.3 fL (80.0-100.0); Monocytes # (auto) 0.3 10 ^3/uL (0-1.3); Neutrophils # (auto) 1.9 10 ^3/uL (1.6-8.6); White Blood Cell 3.4 10^3/uL (4.4-10.8)
[2021-07-26 15:41] LABS: Red Cell Distribution Width 26.7 % (11.8-14.3)
[2021-07-26 15:42] LABS: Hemoglobin 6.6 g/dL (13.5-17.5)
[2021-07-26 17:35] VITALS: BP 125/62
[2021-07-26 17:59] VITALS: BP 123/58
[2021-07-26 20:50] VITALS: BP 132/45
[2021-07-26 21:15] VITALS: BP 135/81
[2021-07-26 23:30] VITALS: BP 143/75
== END 2021-07-26 23:43 | disposition home or self-care (01) ==
LOC: ER 14:53
DX: D64.9 Anemia, unspecified (principal); J44.9 Chronic obstructive pulmonary disease, unspecified; E78.5 Hyperlipidemia, unspecified; F17.210 Nicotine dependence, cigarettes, uncomplicated; Z88.1 Allergy status to other antibiotic agents
CPT/HCPCS: 36415; 36430; 85025; 86850; 86900; 86901; 86920; 99285; P9016

== ENCOUNTER 2021-09-23 13:12 | Emergency (ER) | payer OTHER ==
[~2021-09-23] VITALS: Ht 180.3 cm; Wt 59.0 kg
[2021-09-23] VITALS (10 sets, daily range): BP systolic 121–137; BP diastolic 46–69
[2021-09-23 14:05] LABS: Basophils # (auto) 0.2 10 ^3/uL (0-0.2); Lymphocytes # (auto) 1.4 10 ^3/uL (0.4-5.4); Mean Corpuscular Hemoglobin 38.3 pg (28.0-32.0); Mean Corpuscular Hgb Conc. 33.8 g/dL (32.0-36.0); Nucleated Red Blood Cells % 0.2 %; White Blood Cell 5.3 10^3/uL (4.4-10.8)
[2021-09-23 14:08] LABS: Eosinophils # (auto) 0.3 10 ^3/uL (0-0.8); Eosinophils % (auto) 4.8 % (0.0-7.0); Hematocrit 17.7 % (41.0-53.0); Lymphocytes % (auto) 26.2 % (10.0-50.0); Mean Corpuscular Volume 113.1 fL (80.0-100.0); Monocytes # (auto) 0.5 10 ^3/uL (0-1.3); Monocytes % (auto) 8.9 % (0.0-12.0); Neutrophils % (auto) 57.1 % (37.0-80.0); Red Blood Cells 1.56 10^6/uL (4.5-5.90)
[2021-09-23 14:26] LABS: Calcium 8.3 mg/dL (8.5-10.1); Potassium 4.3 mmol/L (3.5-5.1)
[2021-09-23 14:29] LABS: BUN/Creatinine Ratio 18.3
== END 2021-09-23 22:44 | disposition home or self-care (01) ==
LOC: ER 13:12
DX: D64.9 Anemia, unspecified (principal); J44.9 Chronic obstructive pulmonary disease, unspecified; E78.5 Hyperlipidemia, unspecified; F17.210 Nicotine dependence, cigarettes, uncomplicated; Z88.1 Allergy status to other antibiotic agents
CPT/HCPCS: 36415; 36430; 80048; 85025; 86850; 86900; 86901; 86920; 99285; J7040; P9016; 93005

== ENCOUNTER 2021-10-25 11:44 | Emergency (ER) | payer OTHER ==
[~2021-10-25] VITALS: Ht 180.3 cm; Wt 59.0 kg
[2021-10-25 12:17] LABS: Basophils # (auto) 0.1 10 ^3/uL (0-0.2); Eosinophils # (auto) 0.2 10 ^3/uL (0-0.8); Monocytes # (auto) 0.5 10 ^3/uL (0-1.3)
[2021-10-25 12:19] LABS: Eosinophils % (auto) 3.2 % (0.0-7.0); Hematocrit 18.3 % (41.0-53.0); Lymphocytes # (auto) 0.8 10 ^3/uL (0.4-5.4); Lymphocytes % (auto) 11.9 % (10.0-50.0); Mean Corpuscular Hemoglobin 39.6 pg (28.0-32.0); Mean Corpuscular Hgb Conc. 35.6 g/dL (32.0-36.0); Monocytes % (auto) 7.3 % (0.0-12.0); Neutrophils % (auto) 75.6 % (37.0-80.0); Nucleated Red Blood Cells % 0.1 %; Red Blood Cells 1.65 10^6/uL (4.5-5.90); White Blood Cell 6.6 10^3/uL (4.4-10.8)
[2021-10-25 12:31] LABS: Hemoglobin 6.5 g/dL (13.5-17.5); Red Cell Distribution Width 27.2 % (11.8-14.3)
[2021-10-25 13:23] LABS: Albumin 3.1 g/dL (3.4-5.0); BUN/Creatinine Ratio 16.8; Calcium 7.8 mg/dL (8.5-10.1); Potassium 4.4 mmol/L (3.5-5.1)
[2021-10-25 13:26] LABS: Bilirubin, Total 0.3 mg/dL (0.2-1.0); Total Protein 6.5 g/dL (6.4-8.2)
[2021-10-25] MEDS ORDERED: IPRATROPIUM BROM 0.5 MG/2.5ML INH SOL NEB ONE (20:45)
[2021-10-25] MEDS ORDERED: ALBUTEROL SULF 2.5 MG/0.5ML(0.5%) NEB SOLN NEB ONE (20:45)
[2021-10-25 21:33] LABS: Urine Bacteria NONE SEEN /hpf (None Seen); Urine Blood Negative /uL (Negative); Urine Specific Gravity 1.018 (1.001-1.035); Urine WBC <1 /hpf (0 - 3)
[2021-10-25 21:35] VITALS: BP 144/72
[2021-10-25 21:40] VITALS: BP 133/69
[2021-10-25 21:55] VITALS: BP 135/70
[2021-10-25 22:40] VITALS: BP 142/69
[2021-10-25 23:40] VITALS: BP 139/72
[2021-10-26] VITALS: BP 137/74
[2021-10-26 00:49] VITALS: BP 160/85
== END 2021-10-26 01:01 | disposition home or self-care (01) ==
LOC: ER 11:44
DX: D64.9 Anemia, unspecified (principal); J44.9 Chronic obstructive pulmonary disease, unspecified; E78.5 Hyperlipidemia, unspecified; F17.210 Nicotine dependence, cigarettes, uncomplicated; Z79.899 Other long term (current) drug therapy; Z88.1 Allergy status to other antibiotic agents
CPT/HCPCS: 36415; 36430; 71045; 80053; 81001; 84484; 85025; 86850; 86900; 86901; 86920; 93005; 99285; J7040; P9016

== ENCOUNTER → 2021-11-21 | Emergency (ER) | payer OTHER ==
[~2021-11-21] VITALS: Ht 177.8 cm; Wt 63.5 kg
[2021-11-21] VITALS (9 sets, daily range): BP systolic 104–140; BP diastolic 54–74
[2021-11-21 13:26] LABS: Basophils # (auto) 0 10 ^3/uL (0-0.2); Eosinophils # (auto) 0 10 ^3/uL (0-0.8); Lymphocytes # (auto) 0.3 10 ^3/uL (0.4-5.4); Monocytes # (auto) 0.2 10 ^3/uL (0-1.3); Red Blood Cells 1.52 10^6/uL (4.5-5.90)
[2021-11-21 13:28] LABS: Basophils % (auto) 0.5 % (0.0-2.0); Eosinophils % (auto) 0.3 % (0.0-7.0); Hematocrit 16.8 % (41.0-53.0); Lymphocytes % (auto) 12.7 % (10.0-50.0); Mean Corpuscular Hemoglobin 37.5 pg (28.0-32.0); Mean Corpuscular Hgb Conc. 33.8 g/dL (32.0-36.0); Mean Corpuscular Volume 110.7 fL (80.0-100.0); Monocytes % (auto) 8.9 % (0.0-12.0); Neutrophils # (auto) 2.1 10 ^3/uL (1.6-8.6); Neutrophils % (auto) 77.6 % (37.0-80.0); Nucleated Red Blood Cells % 0.3 %; White Blood Cell 2.7 10^3/uL (4.4-10.8)
[2021-11-21 13:32] LABS: Hemoglobin 5.7 g/dL (13.5-17.5); Red Cell Distribution Width 27.9 % (11.8-14.3)
[2021-11-21 13:42] LABS: INR 1.01 (0.9-1.15)
[2021-11-21 13:43] LABS: Calcium 7.4 mg/dL (8.5-10.1); Potassium 4.3 mmol/L (3.5-5.1)
[2021-11-21 13:45] LABS: Bilirubin, Total 0.2 mg/dL (0.2-1.0)
[2021-11-21 19:25] LABS: Eosinophils # (auto) 0 10 ^3/uL (0-0.8); Hemoglobin 8.1 g/dL (13.5-17.5); Neutrophils # (auto) 1.6 10 ^3/uL (1.6-8.6); White Blood Cell 2.6 10^3/uL (4.4-10.8)
[2021-11-21 19:27] LABS: Basophils # (auto) 0 10 ^3/uL (0-0.2); Basophils % (auto) 0.8 % (0.0-2.0); Eosinophils % (auto) 0.5 % (0.0-7.0); Hematocrit 22.7 % (41.0-53.0); Lymphocytes # (auto) 0.7 10 ^3/uL (0.4-5.4); Lymphocytes % (auto) 26.7 % (10.0-50.0); Mean Corpuscular Hemoglobin 35.5 pg (28.0-32.0); Mean Corpuscular Hgb Conc. 35.7 g/dL (32.0-36.0); Mean Corpuscular Volume 99.5 fL (80.0-100.0); Monocytes # (auto) 0.2 10 ^3/uL (0-1.3); Monocytes % (auto) 9.5 % (0.0-12.0); Neutrophils % (auto) 62.5 % (37.0-80.0); Nucleated Red Blood Cells % 0.1 %; Red Blood Cells 2.28 10^6/uL (4.5-5.90)
[2021-11-21 19:29] LABS: Red Cell Distribution Width 26.6 % (11.8-14.3)
== END | disposition home or self-care (01) ==
LOC: ER 11:26
DX: D64.9 Anemia, unspecified (principal); J44.9 Chronic obstructive pulmonary disease, unspecified; E78.5 Hyperlipidemia, unspecified; F17.210 Nicotine dependence, cigarettes, uncomplicated
CPT/HCPCS: 36415; 36430; 80053; 85025; 85610; 86850; 86900; 86901; 86920; 93005; 99285; P9016

== ENCOUNTER 2021-12-23 10:21 | Emergency (ER) | payer OTHER ==
[2021-12-23] VITALS (10 sets, daily range): BP systolic 119–145; BP diastolic 66–83
[2021-12-23 10:57] LABS: Basophils # (auto) 0.1 10 ^3/uL (0-0.2); Eosinophils # (auto) 0.1 10 ^3/uL (0-0.8); Lymphocytes # (auto) 0.7 10 ^3/uL (0.4-5.4); Mean Corpuscular Hemoglobin 34.6 pg (28.0-32.0); Mean Corpuscular Hgb Conc. 33.3 g/dL (32.0-36.0); Monocytes # (auto) 0.3 10 ^3/uL (0-1.3)
[2021-12-23 10:59] LABS: Basophils % (auto) 1.8 % (0.0-2.0); Eosinophils % (auto) 2.6 % (0.0-7.0); Hematocrit 19.2 % (41.0-53.0); Lymphocytes % (auto) 19.7 % (10.0-50.0); Neutrophils # (auto) 2.5 10 ^3/uL (1.6-8.6); Neutrophils % (auto) 67.9 % (37.0-80.0); Red Blood Cells 1.84 10^6/uL (4.5-5.90); White Blood Cell 3.7 10^3/uL (4.4-10.8)
[2021-12-23 11:17] LABS: Hemoglobin 6.4 g/dL (13.5-17.5)
[2021-12-23 11:18] LABS: Albumin 3.2 g/dL (3.4-5.0); Potassium 4.8 mmol/L (3.5-5.1)
[2021-12-23 11:21] LABS: BUN/Creatinine Ratio 20.5; Bilirubin, Total 0.4 mg/dL (0.2-1.0); Total Protein 6.5 g/dL (6.4-8.2)
== END 2021-12-23 18:52 | disposition home or self-care (01) ==
LOC: ER 10:21
DX: D64.9 Anemia, unspecified (principal); F17.210 Nicotine dependence, cigarettes, uncomplicated; J44.9 Chronic obstructive pulmonary disease, unspecified; E78.5 Hyperlipidemia, unspecified; Z88.1 Allergy status to other antibiotic agents
CPT/HCPCS: 36415; 36430; 80053; 85025; 86850; 86900; 86901; 86920; 93005; 99291; J7040; P9016

== ENCOUNTER 2022-01-27 07:53 | Day surgery (SDC) | payer OTHER ==
[2022-01-27] VITALS (8 sets, daily range): BP systolic 123–135; BP diastolic 68–83
[~2022-01-27 07:53] MED LIST changes: +ATOR10TA52 PO; +FERR-20 PO; -FERR-7 PO; +FLUT1AER3 IN; -UMEC1AER IN
== END 2022-01-27 14:15 | disposition home or self-care (01) ==
LOC: CATH 07:53
PROVIDERS: ATTEND Internal Medicine
DX: D64.9 Anemia, unspecified (principal); J44.9 Chronic obstructive pulmonary disease, unspecified; F17.200 Nicotine dependence, unspecified, uncomplicated; Z82.49 Family history of ischemic heart disease and other diseases of the circulatory system; Z20.822 Contact with and (suspected) exposure to COVID-19
CPT/HCPCS: 36430; 86850; 86900; 86901; 86920; J7040; P9016; U0003

== ENCOUNTER 2022-02-27 15:39 | Emergency (ER) | payer OTHER ==
[~2022-02-27] VITALS: Ht 180.3 cm; Wt 57.0 kg
[2022-02-27 16:10] LABS: Eosinophils # (auto) 0.1 10 ^3/uL (0-0.8); Lymphocytes # (auto) 0.8 10 ^3/uL (0.4-5.4); Neutrophils # (auto) 2.4 10 ^3/uL (1.6-8.6)
[2022-02-27 16:11] LABS: Basophils # (auto) 0.1 10 ^3/uL (0-0.2); Basophils % (auto) 1.9 % (0.0-2.0); Eosinophils % (auto) 3.2 % (0.0-7.0); Lymphocytes % (auto) 22.9 % (10.0-50.0); Mean Corpuscular Hemoglobin 32.3 pg (28.0-32.0); Mean Corpuscular Hgb Conc. 33.8 g/dL (32.0-36.0); Mean Corpuscular Volume 95.4 fL (80.0-100.0); Monocytes # (auto) 0.2 10 ^3/uL (0-1.3); Monocytes % (auto) 6.5 % (0.0-12.0); Neutrophils % (auto) 65.5 % (37.0-80.0); Nucleated Red Blood Cells % 0.1 %; Red Blood Cells 1.99 10^6/uL (4.5-5.90); White Blood Cell 3.7 10^3/uL (4.4-10.8)
[2022-02-27 16:24] LABS: Hemoglobin 6.4 g/dL (13.5-17.5)
[2022-02-27 16:25] LABS: Partial Thromboplastin Time 30.2 sec (24.6-33.4)
[2022-02-27 23:00] VITALS: BP 123/82
[2022-02-27 23:15] VITALS: BP 128/84
[2022-02-27 23:30] VITALS: BP 130/76
[2022-02-28] VITALS (12 sets, daily range): BP systolic 123–145; BP diastolic 61–87
== END 2022-02-28 05:33 | disposition home or self-care (01) ==
LOC: ER 15:39
DX: D64.9 Anemia, unspecified (principal); J44.9 Chronic obstructive pulmonary disease, unspecified; E78.5 Hyperlipidemia, unspecified; F17.210 Nicotine dependence, cigarettes, uncomplicated; Z79.899 Other long term (current) drug therapy; Z88.1 Allergy status to other antibiotic agents
CPT/HCPCS: 36415; 36430; 85025; 85610; 85730; 86850; 86900; 86901; 86920; 99285; P9016

== ENCOUNTER 2022-04-03 08:16 | Observation (INO) | payer OTHER ==
[~2022-04-03] VITALS: Ht 180.3 cm; Wt 56.8 kg
[2022-04-03] MEDS ORDERED: methylPREDNISolone SOD SUCC 125 MG/2 ML VL IV ONE (08:45)
[2022-04-03 08:53] LABS: Basophils # (auto) 0.1 10 ^3/uL (0-0.2); Eosinophils # (auto) 0.1 10 ^3/uL (0-0.8); Mean Corpuscular Hemoglobin 34.1 pg (28.0-32.0); Monocytes # (auto) 0.3 10 ^3/uL (0-1.3); Neutrophils # (auto) 2.2 10 ^3/uL (1.6-8.6)
[2022-04-03 08:56] LABS: Basophils % (auto) 2.5 % (0.0-2.0); Eosinophils % (auto) 1.4 % (0.0-7.0); Hematocrit 18.4 % (41.0-53.0); Lymphocytes % (auto) 27.2 % (10.0-50.0); Mean Corpuscular Hgb Conc. 34.4 g/dL (32.0-36.0); Mean Corpuscular Volume 99.2 fL (80.0-100.0); Monocytes % (auto) 8.8 % (0.0-12.0); Neutrophils % (auto) 60.1 % (37.0-80.0); Nucleated Red Blood Cells % 0.1 %; Red Blood Cells 1.86 10^6/uL (4.5-5.90); White Blood Cell 3.6 10^3/uL (4.4-10.8)
[2022-04-03 09:07] LABS: Albumin 3.3 g/dL (3.4-5.0); Calcium 8.5 mg/dL (8.5-10.1); Potassium 4.5 mmol/L (3.5-5.1)
[2022-04-03 09:10] LABS: BUN/Creatinine Ratio 22.7; Bilirubin, Total 0.5 mg/dL (0.2-1.0); Total Protein 6.8 g/dL (6.4-8.2)
[2022-04-03 09:18] LABS: INR 1.01 (0.9-1.15); Partial Thromboplastin Time 27.2 sec (24.6-33.4)
[2022-04-03 09:43] LABS: Hemoglobin 6.3 g/dL (13.5-17.5); Red Cell Distribution Width 26.4 % (11.8-14.3)
[2022-04-03] MEDS ORDERED: DOCUSATE SOD 100 MG CAP PO PRN (11:15)
[2022-04-03] MEDS ORDERED: ONDANSETRON HCL 4 MG/2 ML VIAL IV PRN (11:15)
[2022-04-03] MEDS ORDERED: ACETAMINOPHEN 325 MG TAB PO PRN (11:15)
[2022-04-03] MEDS ORDERED: HYDROcodone-ACET 5/325MG TAB PO PRN (11:15)
[2022-04-03] MEDS ORDERED: MORPHINE SULFATE INJ 2 MG/ml SYRG IV PRN (11:15)
[2022-04-03 12:52] VITALS: BP 110/65
[2022-04-03 13:08] VITALS: BP 113/59
[2022-04-03 16:17] VITALS: BP 129/68
[2022-04-03 16:31] VITALS: BP 137/54
[2022-04-03 16:48] VITALS: BP 123/70
[2022-04-03 19:31] VITALS: BP 114/67
== END 2022-04-03 20:20 | disposition home or self-care (01) ==
LOC: ER 08:16 → UNDOADMIN 11:10 → OVERFLOW 11:10
PROVIDERS: ADMIT Internal Medicine; ATTEND Internal Medicine
DX: D64.9 Anemia, unspecified (principal); Z20.822 Contact with and (suspected) exposure to COVID-19; J44.1 Chronic obstructive pulmonary disease with (acute) exacerbation; J96.11 Chronic respiratory failure with hypoxia; D61.818 Other pancytopenia; D84.9 Immunodeficiency, unspecified; E44.1 Mild protein-calorie malnutrition; E78.5 Hyperlipidemia, unspecified; E87.0 Hyperosmolality and hypernatremia; N17.9 Acute kidney failure, unspecified; E88.09 Other disorders of plasma-protein metabolism, not elsewhere classified; F17.210 Nicotine dependence, cigarettes, uncomplicated; Z99.81 Dependence on supplemental oxygen; Z79.899 Other long term (current) drug therapy; Z98.890 Other specified postprocedural states; Z68.1 Body mass index [BMI] 19.9 or less, adult
CPT/HCPCS: 36415; 36430; 71045; 80053; 83880; 84484; 85025; 85610; 85730; 86850; 86900; 86901; 86920; 87426; 93005; 96374; 99285; G0378; J2930; P9016

== ENCOUNTER 2022-05-10 12:31 | Inpatient (IN) | payer OTHER ==
[~2022-05-10] VITALS: Ht 180.3 cm; Wt 57.0 kg
[2022-05-10 13:41] LABS: Basophils # (auto) 0.1 10 ^3/uL (0-0.2); Eosinophils # (auto) 0.1 10 ^3/uL (0-0.8); Lymphocytes # (auto) 0.7 10 ^3/uL (0.4-5.4); Monocytes # (auto) 0.2 10 ^3/uL (0-1.3); Neutrophils # (auto) 1.4 10 ^3/uL (1.6-8.6); Nucleated Red Blood Cells % 0.3 %; White Blood Cell 2.4 10^3/uL (4.4-10.8)
[2022-05-10 13:45] LABS: Basophils % (auto) 2.4 % (0.0-2.0); Eosinophils % (auto) 2.4 % (0.0-7.0); Lymphocytes % (auto) 27.7 % (10.0-50.0); Mean Corpuscular Hemoglobin 33.7 pg (28.0-32.0); Mean Corpuscular Hgb Conc. 33.3 g/dL (32.0-36.0); Mean Corpuscular Volume 101.3 fL (80.0-100.0); Monocytes % (auto) 9.6 % (0.0-12.0); Neutrophils % (auto) 57.9 % (37.0-80.0); Red Blood Cells 1.68 10^6/uL (4.5-5.90)
[2022-05-10 13:54] LABS: Hemoglobin 5.6 g/dL (13.5-17.5); Red Cell Distribution Width 24.1 % (11.8-14.3)
[2022-05-10 14:15] LABS: Albumin 3.1 g/dL (3.4-5.0); BUN/Creatinine Ratio 21.8; Calcium 7.9 mg/dL (8.5-10.1); Potassium 4.3 mmol/L (3.5-5.1)
[2022-05-10 14:18] LABS: Bilirubin, Total 0.3 mg/dL (0.2-1.0); Total Protein 5.8 g/dL (6.4-8.2)
[2022-05-10 20:29] VITALS: BP 123/59
[2022-05-10 20:50] VITALS: BP 115/62
[2022-05-10] MEDS ORDERED: ONDANSETRON HCL 4 MG/2 ML VIAL IV PRN (21:45)
[2022-05-10] MEDS ORDERED: DOCUSATE SOD 100 MG CAP PO PRN (21:45)
[2022-05-10] MEDS ORDERED: NITROGLYCERIN 0.4 MG SL TAB SL PRN (21:45)
[2022-05-10] MEDS ORDERED: ACETAMINOPHEN 325 MG TAB PO PRN (21:45)
[2022-05-10] MEDS ORDERED: HYDROcodone-ACET 5/325MG TAB PO PRN (21:45)
[2022-05-10] MEDS ORDERED: MORPHINE SULFATE INJ 2 MG/ml SYRG IV PRN (21:45)
[2022-05-10] MEDS: FLUTICASONE PROPIONATE PO SCH (22:00)
[2022-05-10 22:50] VITALS: BP 134/73
[2022-05-10] MEDS: SODIUM CHLOR 0.9% PF (SALINE LOCK) 10ML VIAL/SYR IV SCH (23:19)
[2022-05-11] VITALS: BP 139/76
[2022-05-11 00:15] VITALS: BP 140/73
[2022-05-11 02:50] VITALS: BP 135/81
[2022-05-11 04:42] LABS: Eosinophils # (auto) 0.1 10 ^3/uL (0-0.8); Eosinophils % (auto) 2.2 % (0.0-7.0); Mean Corpuscular Volume 93.9 fL (80.0-100.0); Monocytes # (auto) 0.3 10 ^3/uL (0-1.3); Neutrophils # (auto) 1.5 10 ^3/uL (1.6-8.6); White Blood Cell 2.9 10^3/uL (4.4-10.8)
[2022-05-11 04:45] LABS: Basophils # (auto) 0 10 ^3/uL (0-0.2); Basophils % (auto) 1.4 % (0.0-2.0); Hematocrit 22.9 % (41.0-53.0); Hemoglobin 7.9 g/dL (13.5-17.5); Lymphocytes % (auto) 34.4 % (10.0-50.0); Mean Corpuscular Hemoglobin 32.1 pg (28.0-32.0); Mean Corpuscular Hgb Conc. 34.2 g/dL (32.0-36.0); Monocytes % (auto) 9.8 % (0.0-12.0); Neutrophils % (auto) 52.2 % (37.0-80.0); Red Blood Cells 2.44 10^6/uL (4.5-5.90); Red Cell Distribution Width 16.8 % (11.8-14.3)
[2022-05-11 04:55] LABS: Albumin 3.1 g/dL (3.4-5.0); BUN/Creatinine Ratio 23.1; Calcium 8.1 mg/dL (8.5-10.1); Potassium 4.1 mmol/L (3.5-5.1)
[2022-05-11 04:58] LABS: Bilirubin, Total 0.9 mg/dL (0.2-1.0); Total Protein 5.9 g/dL (6.4-8.2)
[2022-05-11] MEDS: SODIUM CHLOR 0.9% PF (SALINE LOCK) 10ML VIAL/SYR IV SCH (05:45)
[2022-05-11] MEDS ORDERED: FOLIC ACID 1 MG TAB PO SCH (10:00)
[2022-05-11] MEDS: FLUTICASONE PROPIONATE PO SCH (10:00)
[2022-05-11 12:12] VITALS: BP 122/78
[2022-05-11] MEDS ORDERED: ATORVASTATIN 20 MG TAB PO SCH (22:00)
[2022-05-12] MEDS ORDERED: FERROUS SULFATE 325mg EC TAB PO SCH (10:00)
== END 2022-05-11 13:00 | disposition home or self-care (01) | DRG 812 ==
LOC: ER 12:48 → TELE 21:43
PROVIDERS: ADMIT Nurse Practitioner Family; ATTEND Nurse Practitioner Family
PROC: 30233N1 Transfusion of Nonautologous Red Blood Cells into Peripheral Vein, Percutaneous Approach (ICD-10-PCS; principal; 2022-05-10)
DX: D46.9 Myelodysplastic syndrome, unspecified (principal); Z20.822 Contact with and (suspected) exposure to COVID-19; E78.5 Hyperlipidemia, unspecified; F17.210 Nicotine dependence, cigarettes, uncomplicated; J44.9 Chronic obstructive pulmonary disease, unspecified; Z88.8 Allergy status to other drugs, medicaments and biological substances; Z82.3 Family history of stroke
CPT/HCPCS: 36415; 36430; 80053; 85025; 86850; 86900; 86901; 86920; 87426; G0378

== ENCOUNTER 2022-06-15 12:39 | Inpatient (IN) | payer OTHER ==
[~2022-06-15] VITALS: Ht 185.4 cm; Wt 55.2 kg
[2022-06-15 13:03] LABS: Eosinophils # (auto) 0.5 10 ^3/uL (0-0.8); Hematocrit 22.6 % (41.0-53.0); Hemoglobin 7.9 g/dL (13.5-17.5); Mean Corpuscular Hgb Conc. 34.9 g/dL (32.0-36.0); Monocytes # (auto) 0.3 10 ^3/uL (0-1.3); Nucleated Red Blood Cells % 0.1 %; Red Blood Cells 2.37 10^6/uL (4.5-5.90); White Blood Cell 7.5 10^3/uL (4.4-10.8)
[2022-06-15 13:06] LABS: Basophils # (auto) 0.1 10 ^3/uL (0-0.2); Basophils % (auto) 0.7 % (0.0-2.0); Eosinophils % (auto) 6.8 % (0.0-7.0); Lymphocytes # (auto) 0.7 10 ^3/uL (0.4-5.4); Lymphocytes % (auto) 9.1 % (10.0-50.0); Mean Corpuscular Hemoglobin 33.3 pg (28.0-32.0); Mean Corpuscular Volume 95.4 fL (80.0-100.0); Monocytes % (auto) 4.2 % (0.0-12.0); Neutrophils % (auto) 79.2 % (37.0-80.0); Red Cell Distribution Width 17.2 % (11.8-14.3)
[2022-06-15 13:28] LABS: Albumin 3.6 g/dL (3.4-5.0); Magnesium 2.3 mg/dL (1.6-2.6); Potassium 4.4 mmol/L (3.5-5.1)
[2022-06-15 13:31] LABS: BUN/Creatinine Ratio 19.3; Bilirubin, Total 0.8 mg/dL (0.2-1.0); Total Protein 6.4 g/dL (6.4-8.2)
[2022-06-15] MEDS ORDERED: ASPirin 81 mg TAB PO ONE (15:15)
[2022-06-15] MEDS ORDERED: ALBUTEROL SULF 2.5 MG/0.5ML(0.5%) NEB SOLN NEB ONE (15:30)
[2022-06-15] MEDS ORDERED: IPRATROPIUM BROM 0.5 MG/2.5ML INH SOL NEB ONE (15:30)
[2022-06-15] MEDS ORDERED: DexAMETHasone SOD PHOS 10MG/1ML VIAL INJ IV ONE (15:30)
[2022-06-15] MEDS ORDERED: LACTATED RINGER'S 1,000 ML IV ONE (16:15)
[2022-06-15] MEDS: MAGNESIUM SULFATE 1GM/100ML 100 ML IV SCH ×2 (17:03→18:26)
[2022-06-15] MEDS ORDERED: HYDROcodone-ACET 5/325MG TAB PO PRN (17:15)
[2022-06-15] MEDS ORDERED: ONDANSETRON HCL 4 MG/2 ML VIAL IV PRN (17:15)
[2022-06-15] MEDS ORDERED: MORPHINE SULFATE INJ 2 MG/ml SYRG IV PRN ×2 (17:15→23:15)
[2022-06-15] MEDS ORDERED: NITROGLYCERIN 0.4 MG SL TAB SL PRN ×2 (17:15→23:15)
[2022-06-15] MEDS ORDERED: DOCUSATE SOD 100 MG CAP PO PRN (17:15)
[2022-06-15] MEDS ORDERED: ACETAMINOPHEN 325 MG TAB PO PRN (17:15)
[2022-06-15 17:24] VITALS: BP 105/55
[2022-06-15] MEDS ORDERED: ALBUTEROL MEDNEB 2.5 mg/3ml NEB ONE (18:15)
[2022-06-15] MEDS: IPRATROPIUM BROM 0.5 MG/2.5ML INH SOL NEB PRN (18:59)
[2022-06-15] MEDS: ALBUTEROL SULF 2.5 MG/0.5ML(0.5%) NEB SOLN NEB PRN (18:59)
[2022-06-15] MEDS: ATORVASTATIN 20 MG TAB PO SCH (23:31)
[2022-06-16 01:20] VITALS: BP 113/69
[2022-06-16 01:35] VITALS: BP 115/68
[2022-06-16 03:39] VITALS: BP 122/70
[2022-06-16] MEDS: FOLIC ACID 1 MG TAB PO SCH (09:57)
[2022-06-16] MEDS ORDERED: FERROUS SULFATE 325mg EC TAB PO SCH (10:00)
[2022-06-16 11:44] LABS: Urine Bacteria NONE SEEN /hpf (None Seen); Urine Blood TRACE /uL (Negative); Urine Hyaline Cast FEW /lpf (0 - 2); Urine Mucus FEW (None Seen); Urine Specific Gravity 1.022 (1.001-1.035); Urine WBC <1 /hpf (0 - 3)
[2022-06-16] MEDS ORDERED: SOTALOL HCL 80 MG TAB PO SCH (12:00)
[2022-06-16 22:00] VITALS: BP 137/78
[2022-06-16 22:27] VITALS: BP 137/78
[2022-06-16] MEDS: SOTALOL HCL 80 MG TAB PO SCH (22:30)
[2022-06-16] MEDS: ATORVASTATIN 20 MG TAB PO SCH (22:30)
[2022-06-17] MEDS: IPRATROPIUM BROM 0.5 MG/2.5ML INH SOL NEB PRN (01:02)
[2022-06-17] MEDS: ALBUTEROL SULF 2.5 MG/0.5ML(0.5%) NEB SOLN NEB PRN ×2 (01:02→06:47)
[2022-06-17 05:22] VITALS: BP 119/70
[2022-06-17 08:00] VITALS: BP 121/67
[2022-06-17 09:00] VITALS: BP 121/67
[2022-06-17] MEDS ORDERED: ALBUTEROL MEDNEB 2.5 mg/3ml NEB ONE (09:48)
[2022-06-17] MEDS: SOTALOL HCL 80 MG TAB PO SCH (10:08)
[2022-06-17] MEDS: FOLIC ACID 1 MG TAB PO SCH (10:08)
[2022-06-17 13:00] VITALS: BP 107/66
[2022-06-17] MEDS ORDERED: SOTA80TA20 PO (14:59)
[2022-06-17 17:00] VITALS: BP 117/77
[2022-06-17 17:33] VITALS: BP 107/66
== END 2022-06-17 18:32 | disposition home health service (06) | DRG 841 ==
LOC: ER 12:39 → TELE 23:10 → TELE-WESTW 06-16 21:27
PROVIDERS: ADMIT Nurse Practitioner Family; ATTEND Internal Medicine
PROC: 30233N1 Transfusion of Nonautologous Red Blood Cells into Peripheral Vein, Percutaneous Approach (ICD-10-PCS; principal; 2022-06-16)
DX: C90.00 Multiple myeloma not having achieved remission (principal); D61.818 Other pancytopenia; J96.11 Chronic respiratory failure with hypoxia; I49.3 Ventricular premature depolarization; J44.9 Chronic obstructive pulmonary disease, unspecified; I10 Essential (primary) hypertension; I25.10 Atherosclerotic heart disease of native coronary artery without angina pectoris; F17.210 Nicotine dependence, cigarettes, uncomplicated; D64.9 Anemia, unspecified; Z20.822 Contact with and (suspected) exposure to COVID-19; Z99.81 Dependence on supplemental oxygen; Z82.3 Family history of stroke; Z88.8 Allergy status to other drugs, medicaments and biological substances
CPT/HCPCS: 36415; 70450; 71045; 71250; 74176; 80053; 81001; 83735; 83880; 84484; 85025; 86850; 86900; 86901; 86922; 87426; 93005; 93306; 94640; 96365; 96366; 96375; 97163; G0378; J1100

== ENCOUNTER 2022-07-21 10:05 | Inpatient (IN) | payer OTHER ==
[~2022-07-21] VITALS: Ht 175.3 cm; Wt 54.5 kg
[2022-07-21] VITALS (8 sets, daily range): BP systolic 111–125; BP diastolic 57–73
[~2022-07-21 10:05] MED LIST changes: +SOTA80TA20 PO
[2022-07-21 10:54] LABS: Basophils # (auto) 0 10 ^3/uL (0-0.2); Eosinophils # (auto) 0.2 10 ^3/uL (0-0.8); Lymphocytes # (auto) 0.9 10 ^3/uL (0.4-5.4); Monocytes # (auto) 0.2 10 ^3/uL (0-1.3)
[2022-07-21 10:56] LABS: Basophils % (auto) 0.6 % (0.0-2.0); Eosinophils % (auto) 8.9 % (0.0-7.0); Hematocrit 18.7 % (41.0-53.0); Lymphocytes % (auto) 36.5 % (10.0-50.0); Mean Corpuscular Hemoglobin 33.8 pg (28.0-32.0); Mean Corpuscular Hgb Conc. 34.2 g/dL (32.0-36.0); Mean Corpuscular Volume 98.8 fL (80.0-100.0); Monocytes % (auto) 8.1 % (0.0-12.0); Neutrophils # (auto) 1.1 10 ^3/uL (1.6-8.6); Neutrophils % (auto) 45.9 % (37.0-80.0); Nucleated Red Blood Cells % 0.7 %; Red Blood Cells 1.89 10^6/uL (4.5-5.90); White Blood Cell 2.4 10^3/uL (4.4-10.8)
[2022-07-21 11:03] LABS: INR 0.96 (0.9-1.15); Partial Thromboplastin Time 29.1 sec (24.6-33.4)
[2022-07-21 11:04] LABS: Albumin 2.8 g/dL (3.4-5.0); Calcium 7.8 mg/dL (8.5-10.1); Potassium 4.4 mmol/L (3.5-5.1)
[2022-07-21 11:07] LABS: Bilirubin, Total 0.4 mg/dL (0.2-1.0); Total Protein 5.8 g/dL (6.4-8.2)
[2022-07-21 11:47] LABS: Hemoglobin 6.4 g/dL (13.5-17.5); Red Cell Distribution Width 30.5 % (11.8-14.3)
[2022-07-21] MEDS ORDERED: ALBUTEROL SULF 2.5 MG/0.5ML(0.5%) NEB SOLN NEB PRN (15:00)
[2022-07-21] MEDS ORDERED: FUROSEMIDE 20 MG/2 ML VIAL IV ONE (15:00)
[2022-07-21] MEDS ORDERED: ACETAMINOPHEN 325 MG TAB PO PRN (15:00)
[2022-07-21] MEDS ORDERED: ONDANSETRON HCL 4 MG/2 ML VIAL IV PRN (15:00)
[2022-07-21] MEDS ORDERED: FERROUS SULFATE 325mg EC TAB PO SCH (18:00)
[2022-07-21] MEDS ORDERED: ATORVASTATIN 20 MG TAB PO SCH (22:00)
[2022-07-21] MEDS ORDERED: SOTALOL HCL 80 MG TAB PO SCH (22:00)
[2022-07-21] MEDS ORDERED: DOCUSATE SOD 100 MG CAP PO SCH (22:00)
[2022-07-22 01:09] LABS: Hemoglobin 8.2 g/dL (13.5-17.5)
[2022-07-22] MEDS ORDERED: FOLIC ACID 1 MG TAB PO SCH (10:00)
== END 2022-07-22 01:55 | disposition left against medical advice (07) | DRG 812 ==
LOC: ER 10:05 → TELE 14:53
PROVIDERS: ADMIT Internal Medicine; ATTEND Internal Medicine
PROC: 30233N1 Transfusion of Nonautologous Red Blood Cells into Peripheral Vein, Percutaneous Approach (ICD-10-PCS; principal; 2022-07-21)
DX: D46.9 Myelodysplastic syndrome, unspecified (principal); D63.8 Anemia in other chronic diseases classified elsewhere; E78.5 Hyperlipidemia, unspecified; Z20.822 Contact with and (suspected) exposure to COVID-19; I10 Essential (primary) hypertension; F17.210 Nicotine dependence, cigarettes, uncomplicated; I25.10 Atherosclerotic heart disease of native coronary artery without angina pectoris; I48.91 Unspecified atrial fibrillation; Z53.29 Procedure and treatment not carried out because of patient's decision for other reasons; J43.9 Emphysema, unspecified; Z82.3 Family history of stroke; Z99.81 Dependence on supplemental oxygen; Z88.8 Allergy status to other drugs, medicaments and biological substances
CPT/HCPCS: 36415; 71045; 80053; 83880; 84484; 85014; 85018; 85025; 85610; 85730; 86850; 86900; 86901; 86920; 87426; 93005; 99291; G0378

== ENCOUNTER → 2022-10-14 | Day surgery (SDC) | payer OTHER ==
[2022-10-14] VITALS (13 sets, daily range): BP systolic 107–134; BP diastolic 52–76
[~2022-10-14] VITALS: Ht 180.3 cm; Wt 54.4 kg
== END | disposition home or self-care (01) ==
LOC: CATH 06:48
PROVIDERS: ATTEND Internal Medicine
DX: D64.9 Anemia, unspecified (principal)
CPT/HCPCS: 86850; 86900; 86901; J7040; P9016; 86922